=== PATIENT | male | born 1995 | race Two or more races ===

== ENCOUNTER 2017-04-18 20:39 | Emergency (ER) | payer SELFPAY ==
[~2017-04-18] VITALS: Ht 167.6 cm; Wt 70.3 kg
[2017-04-18 20:52] VITALS: BP 154/95
[2017-04-18] MEDS ORDERED: TETRACAINE HCL 0.5% OPTH(EYE) SOLN 4ML EACHEYE ONE (23:00)
[2017-04-18] MEDS ORDERED: FLUORESCEIN SOD 1 MG TEST STRIP EACHEYE ONE (23:00)
[2017-04-18] MEDS ORDERED: GENTAMICIN SULF 0.3% OPTH(EYE) OINT 3.5GM EACHEYE ONE (23:00)
[2017-04-18] MEDS ORDERED: FLUORESCEIN SOD 1 MG TEST STRIP ONE (23:49)
[2017-04-19] MEDS ORDERED: BACITRACIN-POLYMYXIN B TOPICAL OINT UD TOP ONE (00:15)
[2017-04-19] MEDS ORDERED: BACITRACIN TOP OINT 1 UD PKG TOP ONE (00:15)
== END 2017-04-19 00:27 | disposition home or self-care (01) ==
LOC: ER 20:44
DX: L03.011 Cellulitis of right finger (principal); H16.131 Photokeratitis, right eye
CPT/HCPCS: 10060

== ENCOUNTER 2024-03-09 10:41 | Emergency (ER) | payer BC, MEDICAID ==
[~2024-03-09] VITALS: Ht 167.6 cm; Wt 68.9 kg
[2024-03-09 11:57] VITALS: BP 134/77; PULSE 77; RESP 16; TEMP 99.7; O2SAT 99
[2024-03-09] MEDS ORDERED: NAPR-746 PO (12:08)
[2024-03-09] MEDS ORDERED: PRED20TA2 PO (12:08)
== END 2024-03-09 12:11 | disposition home or self-care (01) ==
LOC: ER 10:41
DX: G56.01 Carpal tunnel syndrome, right upper limb (principal); R20.2 Paresthesia of skin
CPT/HCPCS: 29125